=== PATIENT | male | born 1980 | race Caucasian/White ===

== ENCOUNTER 2016-07-27 18:54 | Emergency (ER) | payer SELFPAY ==
[2016-07-27 21:18] VITALS: BP 164/97
== END 2016-07-27 21:18 | disposition home or self-care (01) ==
LOC: ED 18:54
DX: B35.3 Tinea pedis (principal); M25.774 Osteophyte, right foot; M25.775 Osteophyte, left foot; K52.9 Noninfective gastroenteritis and colitis, unspecified; F17.210 Nicotine dependence, cigarettes, uncomplicated; Z59.0 Homelessness
CPT/HCPCS: Q0162